=== PATIENT | female | born 1970 | race Caucasian/White ===

== ENCOUNTER 2018-05-24 10:49 | Emergency (ER) | payer OTHER ==
[~2018-05-24] VITALS: Ht 175.3 cm; Wt 92.6 kg
[2018-05-24] MEDS ORDERED: METHOCARBAMOL 750 MG TABLET PO ONE (12:00)
[2018-05-24] MEDS ORDERED: SODIUM CHLORIDE FLUSH 10ML SYR IVF ONE (12:00)
[2018-05-24 12:12] LABS: BASOPHILS # (AUTO) 0.03 x10^3/uL (0-0.1); BASOPHILS % (AUTO) 0 % (0-1); EOSINOPHILS # (AUTO) 0.09 x10^3/uL (0-0.4); EOSINOPHILS % (AUTO) 1 % (1-7); LYMPHOCYTES # (AUTO) 1.89 x10^3/uL (1-3.4); LYMPHOCYTES % (AUTO) 18 % (22-44); MD NO; MEAN CORPUSCULAR HEMOGLOBIN 28.3 pg (27.0-34.8); MEAN CORPUSCULAR HGB CONC 33.7 g/dL (32.4-35.8); MEAN CORPUSCULAR VOLUME 83.8 fL (80-100); MEAN PLATELET VOLUME 7.6 fL (7.4-10.4); MONOCYTES # (AUTO) 0.54 x10^3/uL (0.2-0.8); MONOCYTES % (AUTO) 5 % (2-9); NEUTROPHILS # (AUTO) 8.26 x10^3/uL (1.8-6.8); NEUTROPHILS % (AUTO) 76 % (42-75); PLATELET COUNT 314 x10^3/uL (130-400); RED BLOOD COUNT 4.66 x10^6/uL (3.82-5.3); RED CELL DISTRIBUTION WIDTH 13.6 % (9.6-15.2)
[2018-05-24] MEDS ORDERED: METHOCARBAMOL 750 MG TABLET ONE (12:19)
[2018-05-24 12:21] LABS: ALBUMIN 3.4 g/dL (3.4-5.0); ANION GAP 8 mmol/L (5-15); CALCIUM 9.2 mg/dL (8.5-10.1); CHLORIDE 107 mmol/L (98-107); CREATININE 0.77 mg/dL (0.55-1.02)
[2018-05-24] MEDS ORDERED: CARB100T3 PO (12:24)
[2018-05-24] MEDS ORDERED: LEVO88TA2 PO (12:25)
[2018-05-24] MEDS ORDERED: TRIM100T PO (12:25)
[2018-05-24] MEDS ORDERED: LORA10CA PO (12:27)
[2018-05-24] MEDS ORDERED: OMEP20TA62 PO (12:27)
[2018-05-24] MEDS ORDERED: SERT100T PO (12:27)
[2018-05-24] MEDS ORDERED: MULT-6 PO (12:28)
[2018-05-24] MEDS ORDERED: CA C1TAB64 PO (12:29)
[2018-05-24 14:00] LABS: CULTURE INDICATED? YES; MICROSCOPIC AUTO
[2018-05-24 14:30] VITALS: BP 137/83
== END 2018-05-24 16:04 | disposition home or self-care (01) ==
LOC: ED 15:45
DX: M51.36 Other intervertebral disc degeneration, lumbar region (principal)
CPT/HCPCS: 36415; 72110; 74176; 80048; 81001; 82040; 85025; 87086; 99285; J7512

== ENCOUNTER 2020-06-17 17:27 | Emergency (ER) | payer BC ==
[~2020-06-17] VITALS: Ht 175.3 cm; Wt 87.4 kg
[~2020-06-17 17:27] MED LIST changes: -GABA300C PO; -HYOS0.375 PO; -LEVO100T PO
--- NOTE | 2020-06-17 17:45 | NUR ---
[employer] PRACTITIONER NOTE: PT TO ROOM 28 FROM TRIAGE VIA WHEELCHAIR
[2020-06-17] MEDS ORDERED: LEVO100T PO (18:17)
[2020-06-17] MEDS ORDERED: GABA300C PO (18:17)
[2020-06-17] MEDS ORDERED: HYOS0.375 PO (18:17)
--- NOTE | 2020-06-17 18:18 | NUR ---
pt to ct. as
[2020-06-17] MEDS ORDERED: SODIUM CHLORIDE FLUSH 10ML SYR IVF ONE (18:30)
[2020-06-17] MEDS ORDERED: OMNIPAQUE 350 MG/ML, 100ML BOTTLE ONE (18:30)
--- NOTE | 2020-06-17 18:42 | NUR ---
pt back from ct. c/o chest pressure mid sternum reproducible, won't give a number to rate pain, some sob, nsr on monitor. labs pending. as
--- NOTE | 2020-06-17 18:52 | NUR ---
report to [facility]. as
[2020-06-17 18:53] LABS: ALANINE AMINOTRANSFERASE 28 U/L (12-78); ALBUMIN 3.3 g/dL (3.4-5.0); ANION GAP 4 mmol/L (5-15); BASOPHILS % (AUTO) 0 % (0-1); CHLORIDE 110 mmol/L (98-107); CREATININE 0.95 mg/dL (0.55-1.02); EOSINOPHILS % (AUTO) 1 % (1-7); LYMPHOCYTES % (AUTO) 23 % (22-44); MEAN CORPUSCULAR HEMOGLOBIN 28.5 pg (27.0-34.8); MEAN CORPUSCULAR HGB CONC 33.8 g/dL (32.4-35.8); MEAN PLATELET VOLUME 7.6 fL (7.4-10.4); MONOCYTES % (AUTO) 7 % (2-9); NEUTROPHILS % (AUTO) 68 % (42-75); PLATELET COUNT 304 x10^3/uL (130-400); RED BLOOD COUNT 4.68 x10^6/uL (3.82-5.3); RED CELL DISTRIBUTION WIDTH 13.3 % (9.6-15.2)
--- NOTE | 2020-06-17 18:55 | NUR ---
REPORT FROM ZUNILDA DAVIS ASSUMING CARE OF PT AT THIS TIME
[2020-06-17 18:56] LABS: MD NO
[2020-06-17 18:57] LABS: ALKALINE PHOSPHATASE 87 U/L (45-117); BILIRUBIN,TOTAL 0.2 mg/dL (0.2-1.0); TOTAL PROTEIN 7.8 g/dL (6.4-8.2); TROPONIN I < 0.015 ng/mL (0.000-0.045)
[2020-06-17 19:54] VITALS: BP 111/63
--- NOTE | 2020-06-17 19:55 | NUR ---
Patient/Caregiver given discharge instructions and they have confirmed that they understand the instructions. Patient ambulatory with steady gait.
== END 2020-06-17 20:20 | disposition home or self-care (01) ==
LOC: ED 18:00
DX: R07.2 Precordial pain (principal); R07.89 Other chest pain
CPT/HCPCS: 36415; 71275; 74175; 80053; 84484; 85025; 93005; 99285; Q9967

== ENCOUNTER → 2020-06-17 | Outpatient (CLI) | payer BC ==
[~2020-06-17] MED LIST: CA C1TAB64 PO; CARB100T3 PO; GABA300C PO; HYOS0.375 PO; LEVO100T PO; LEVO88TA2 PO; LORA10CA PO; MULT-6 PO; OMEP20TA62 PO; SERT100T PO; TRIM100T PO
== END | disposition home or self-care (01) ==
LOC: CFH 16:08
PROVIDERS: ATTEND Nurse Practitioner Family
DX: I36.1 Nonrheumatic tricuspid (valve) insufficiency (principal)
CPT/HCPCS: 93306